=== PATIENT | male | born 1955 | race Caucasian/White ===

== ENCOUNTER 2017-11-24 09:20 | Emergency (ER) | payer MEDICARE ==
[~2017-11-24] VITALS: Ht 190.5 cm; Wt 130.0 kg
[2017-11-24] MEDS ORDERED: KEFLEX500 MG PO ×2 (10:04→10:26)
[2017-11-24 10:25] VITALS: BP 144/86
== END 2017-11-24 10:25 | disposition home or self-care (01) ==
LOC: ED 09:20
PROC: 0HQ1XZZ Repair Face Skin, External Approach (ICD-10-PCS; principal; 2017-11-24)
DX: S05.42XA Penetrating wound of orbit with or without foreign body, left eye, initial encounter (principal); S60.512A Abrasion of left hand, initial encounter; S80.212A Abrasion, left knee, initial encounter; V19.3XXA Pedal cyclist (driver) (passenger) injured in unspecified nontraffic accident, initial encounter; Y92.480 Sidewalk as the place of occurrence of the external cause; Y93.55 Activity, bike riding

== ENCOUNTER 2018-11-15 10:09 | Emergency (ER) | payer MEDICARE, OTHER ==
[~2018-11-15] VITALS: Ht 190.5 cm; Wt 139.0 kg
[~2018-11-15 10:09] MED LIST: KEFLEX500 MG PO
[2018-11-15 10:16] VITALS: BP 102/66
[2018-11-15] MEDS ORDERED: LISINOP/HCTZ1 TA1 PO (10:26)
[2018-11-15] MEDS ORDERED: SERTRALINE HCL50 MG PO (10:26)
[2018-11-15] MEDS ORDERED: FLECAINIDE50 MG PO (10:27)
[2018-11-15] MEDS ORDERED: ELIQUIS5 MG PO (10:27)
[2018-11-15] MEDS ORDERED: DICLOFENAC50 MG PO (11:59)
== END 2018-11-15 12:05 | disposition home or self-care (01) ==
LOC: ED 10:09
DX: S80.02XA Contusion of left knee, initial encounter (principal); I10 Essential (primary) hypertension; I48.91 Unspecified atrial fibrillation; F32.9 Major depressive disorder, single episode, unspecified; F41.9 Anxiety disorder, unspecified; Z96.653 Presence of artificial knee joint, bilateral; W01.0XXA Fall on same level from slipping, tripping and stumbling without subsequent striking against object, initial encounter

== ENCOUNTER → 2018-12-20 | Outpatient (REF) | payer MEDICARE, OTHER ==
[~2018-12-20] MED LIST changes: +DICLOFENAC50 MG PO; +ELIQUIS5 MG PO; +FLECAINIDE50 MG PO; +LISINOP/HCTZ1 TA1 PO; +SERTRALINE HCL50 MG PO
== END | disposition home or self-care (01) ==
LOC: DI 10:15
PROVIDERS: ATTEND Internal Medicine
DX: Z01.818 Encounter for other preprocedural examination (principal); Z01.811 Encounter for preprocedural respiratory examination

== ENCOUNTER → 2018-12-28 | Outpatient (REF) | payer MEDICARE, OTHER | END | disposition home or self-care (01) | LOC: ULTRASND 10:31 | PROVIDERS: ATTEND Internal Medicine | DX: I71.4 Abdominal aortic aneurysm, without rupture (principal) ==